=== PATIENT | female | born 1965 | race Caucasian/White ===

== ENCOUNTER → 2017-05-11 | Outpatient (CLI) | payer OTHER | LOC: LAB 16:02 | PROVIDERS: ATTEND Specialist | DX: Z02.9 Encounter for administrative examinations, unspecified (principal) ==

== ENCOUNTER → 2018-06-28 | Outpatient (CLI) | payer OTHER | END | disposition home or self-care (01) | LOC: RAD 07:57 | PROVIDERS: ATTEND Nurse Practitioner Primary Care | DX: M50.10 Cervical disc disorder with radiculopathy, unspecified cervical region (principal) | CPT/HCPCS: 72141 ==